=== PATIENT | male | born 1950 | race Caucasian/White ===

== ENCOUNTER 2019-09-20 21:51 | Emergency (ER) | payer MEDICARE, OTHER ==
[2019-09-20 22:14] VITALS: O2SAT 94
[2019-09-20] MEDS ORDERED: Adacel Vial IM ONE ×2 (23:13→23:26)
--- NOTE | 2019-09-20 23:13 | ERPHSYRPT ---
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 denies loss of consciousness Triage Nursing Assessment: pt alert and oriented, answers questions approp. pt ambulatory with steady gait noted. respirations nonlabored. denies loc, denies dizziness at this time. Physician History: Patient was hit with a piece of plastic to his right eyebrow at work at approximately 16:00 on 09/20/2019. He denies any loss of vision or any eye pain. He can not recall his last tetanus shot. 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 Allergies/Adverse Reactions: Penicillins Allergy (Verified 09/20/19 22:16) Home Medications: Aspirin EC 81 mg [Ecotrin 81 mg] 81 mg PO DAILY 09/20/19 [History] Hx Tetanus, Diphtheria Vaccination/Date Given: No (unknown) Hx Influenza Vaccination/Date Given: No Hx Pneumococcal Vaccination/Date Given: No Immunizations Up to Date: No - Review of Systems Constitutional: No Fatigue, No Lethargy, No Malaise Eyes: No Discharge, No Eye Pain, No Eye Redness, No Photophobia, No Tearing, No Vision Changes, No Double Vision, No Foreign Body Sensation Ears, Nose, & Throat: No Ear Pain, No Nose Congestion, No Epistaxis, No Mouth Pain, No Loose Teeth, No Painful Swallowing Respiratory: No Dyspnea, No Dyspnea on Exertion (LYONS) Cardiac: No Chest Pain, No Palpitations, No Syncope Abdominal/Gastrointestinal: No Abdominal Pain, No Nausea, No Vomiting Genitourinary Symptoms: No Flank Pain Musculoskeletal: No Back Pain, No Neck Pain Skin: No Pruritis, No Rash Neurological: No Dizziness, No Headache, No Irritability, No Lethargy, No Parasthesia, No Seizure, No Tremors, No Vertigo Psychological: No Anxiety Endocrine: No Excessive Sweating Hematologic/Lymphatic: No Easy Bleeding, No Easy Bruising All Other Systems: Reviewed and Negative - Past Medical History Pertinent Past Medical History: Yes Cardiac History: Hypertension Respiratory History: No Pertinent History History: Other Other Medical History: kidney stone, colon infection- in surgery for 3 weeks, dvt, dural fistula 2014 - Past Surgical History Past Surgical History: Yes Gastrointestinal: Cholecystectomy Other Surgical History: cysto, - Social History Smoking Status: Never smoker Exposure to second hand smoke: No Drug Use: none Patient Lives Alone: No - Nursing Vital Signs Nursing Vital Signs: Initial Vital Signs Temperature 98.2 F 09/20/19 21:57 Pulse Rate 69 09/20/19 21:57 Respiratory Rate 18 09/20/19 21:57 Blood Pressure 144/73 09/20/19 21:57 O2 Sat by Pulse Oximetry 94 L 09/20/19 21:57 Pain Scale Pain Intensity 1 - Physical Exam General Appearance: no apparent distress, alert Vision Acuity Degree Evaluation Phase: Corrected Vision Acuity Right Eye: 20/50 Vision Acuity Left Eye: 20/50 Eye Exam: left eye: ecchymosis (left medial periocular area), bilateral eye: normal inspection (visual love intact to all four quadrants bilaterally), PERRL, EOMI Ears, Nose, Throat Exam: normal ENT inspection, TMs normal, pharynx normal, moist mucous membranes, No dry mucous membranes, No TM abnormal (R), No TM abnormal (L), No pharyngeal erythema Neck Exam: normal inspection, non-tender, supple, full range of motion, No meningismus, No Brudzinski, No limited range of motion, No midline tenderness Respiratory Exam: normal breath sounds, lungs clear, airway intact, No chest tenderness, No respiratory distress, No diminished breath sounds, No accessory muscle use, No crackles/rales, No rhonchi, No wheezing, No stridor Cardiovascular Exam: regular rate/rhythm, normal heart sounds, normal peripheral pulses, capillary refill <2 sec Gastrointestinal Exam: soft, normal bowel sounds, No tenderness, No distention, No guarding Extremity Exam: normal inspection, normal range of motion, pelvis stable, No contusions, No deformities, No lacerations Neurologic: alert, oriented x 3, cooperative, runner man II-XII nml as tested, normal mood/affect, nml cerebellar function, nml station & gait, sensation nml, No motor deficits Skin Exam: normal color, warm, dry, laceration (1.5 cm linear, clean subcutaneous laceration with no contamination medial to the right eyebrown with no involvement of the eyebrow), No rash, No abrasion SpO2 Interpretation: normal SpO2: 94 O2 Delivery: Room Air - Course Nursing assessment & vital signs reviewed: Yes Ordered Tests: Active Orders 24 hr Category Date Time Status Visual Acuity STAT Care 09/20/19 23:13 Active Medication Summary Discontinued Medications Generic Name Dose Route Start Last Admin Trade Name Freq PRN Reason Stop Dose Admin Diphtheria/Tetanus/Acell Pertussis 0.5 ml 09/20/19 23:13 09/20/19 23:40 Adacel Vial IM 09/20/19 23:14 0.5 ml .ONCE ONE Administration Diphtheria/Tetanus/Acell Pertussis Confirm 09/20/19 23:26 Adacel Vial Administered 09/20/19 23:27 Dose 0.5 ml IM .STK-MED ONE Lidocaine HCl Confirm 09/20/19 23:14 Xylocaine 1% Hcl 20 Ml Mdv Administered 09/20/19 23:15 Dose 1 ml .ROUTE .STK-MED ONE - Progress Progress: improved Progress Note: 09/20/19 23:19 Laceration Repair Procedure: location:4 head, medial to the left eyebrow Length: 1.5 cm wound description: Linear, slightly jagged, subcutaneous, with no contamination Cleaning: irrigated and cleansed with Hibiclens and saline Laceration repair: 4 interrupted 5-0 Prolene sutures Patient tolerated the procedure well, no complications No dressing placed 09/20/19 23:46 Laceration well approximated with no bleeding Counseled pt/family regarding: diagnosis, need for follow-up, rad results - Departure Departure Disposition: Home Clinical Impression: Laceration of forehead without complication Qualifiers: Encounter type: initial encounter Qualified Code(s): S01.81XA - Laceration without foreign body of other part of head, initial encounter Contusion of periocular region, left Qualifiers: Encounter type: initial encounter Qualified Code(s): S00.12XA - Contusion of left eyelid and periocular area, initial encounter Hypertension Qualifiers: Hypertension type: essential hypertension Qualified Code(s): I10 - Essential ( primary) hypertension Condition: Good Critical Care Time: No Referrals: RAINA SORIA MD [Primary Care Provider] - 09/25/19 (4 sutures were placed) Instructions: High Blood Pressure (DC), Laceration Repair With Stitches (DC), Tdap Vaccine Additional Instructions: You had 4 sutures placed, which should be removed in 5 days. You had your tetanus boosted with Adacel today. You had no involvement of your eye today. Return to the [facility] headache, dizziness, vision changes, new eye pain, or any other concerning signs or symptoms that were not present at today's emergency department for immediate reevaluation in the emergency department.
[2019-09-20] MEDS ORDERED: XYLOCAINE 1% HCL 20 ML MDV ONE (23:14)
[2019-09-20 23:50] VITALS: BP 151/88; PULSE 66
== END 2019-09-20 23:50 | disposition home or self-care (01) ==
LOC: ED 21:51
DX: S01.81XA Laceration without foreign body of other part of head, initial encounter (principal); S00.12XA Contusion of left eyelid and periocular area, initial encounter; I10 Essential (primary) hypertension; W22.8XXA Striking against or struck by other objects, initial encounter; Y93.89 Activity, other specified; Y92.89 Other specified places as the place of occurrence of the external cause
CPT/HCPCS: 12011; 90471; 90715; 99283

== ENCOUNTER 2020-03-19 17:11 | Emergency (ER) | payer MEDICARE, OTHER ==
[2020-03-19 17:31] VITALS: BP 141/67; PULSE 60; O2SAT 95
--- NOTE | 2020-03-19 17:54 | ERPHSYRPT ---
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 There is bleeding, applied pressure and is better. Laceration is at the pulp of finger and does not involve the nailbed. Intact movements at interphalangeal joint. He is complaining of sharp pain mild to moderate intensity with movements and palpation and better with being still an elevation. Up-to-date with immunizations. Allergies/Adverse Reactions: Penicillins Allergy (Verified 03/19/20 17:32) Home Medications: Aspirin EC 81 mg [Ecotrin 81 mg] 81 mg PO DAILY 09/20/19 [History] Atorvastatin Calcium [Lipitor] 80 mg PO DAILY 03/19/20 [History] Metoprolol Tartrate 25 mg [Lopressor 25MG Tab] 25 mg PO BID 03/19/20 [ History] Prasugrel HCL 10 MG [Effient 10 MG TABLET] 10 mg PO DAILY 03/19/20 [ History] lisinopriL [Lisinopril] 10 mg PO BID 03/19/20 [History] Hx Tetanus, Diphtheria Vaccination/Date Given: No (unknown) Hx Influenza Vaccination/Date Given: No Hx Pneumococcal Vaccination/Date Given: No Travel Risk - International Travel Have you traveled outside of the country in past 3 weeks: No Have you or anyone close to you been diagnosed with or: No Do your reside in a community with a known COVID-19 case?: Yes If Yes where:: [facility] - Coronavirus Screening Has patient experienced Coronavirus symptoms: No - Review of Systems Constitutional: No Symptoms Eyes: No Symptoms Ears, Nose, & Throat: No Symptoms Respiratory: No Symptoms Cardiac: No Symptoms Abdominal/Gastrointestinal: No Symptoms Musculoskeletal: Injury Skin: Skin Lesions Neurological: No Symptoms Psychological: No Symptoms Hematologic/Lymphatic: No Symptoms Immunological/Allergic: No Symptoms - Past Medical History Pertinent Past Medical History: Yes Cardiac History: Hypertension Respiratory History: No Pertinent History History: Other Other Medical History: kidney stone, colon infection- in surgery for 3 weeks, dvt, dural fistula 2014 - Past Surgical History Past Surgical History: Yes Gastrointestinal: Cholecystectomy Other Surgical History: cysto, - Social History Smoking Status: Never smoker Exposure to second hand smoke: No Drug Use: none Patient Lives Alone: No - Nursing Vital Signs Nursing Vital Signs: Initial Vital Signs Temperature 98.8 F 03/19/20 17:22 Pulse Rate 60 03/19/20 17:22 Blood Pressure 141/67 03/19/20 17:22 O2 Sat by Pulse Oximetry 95 03/19/20 17:22 Pain Scale Pain Intensity 3 - Physical Exam General Appearance: no apparent distress Eyes, Ears, Nose, Throat Exam: normal ENT inspection Neck Exam: normal inspection Cardiovascular/Respiratory Exam: normal breath sounds, regular rate/rhythm Shoulder Exam: normal inspection Elbow/Forearm Exam: normal inspection Wrist Exam: normal inspection Hand Exam: laceration (Left index finger curved laceration treatment centimeter. Blood oozing but not spurting. Intact movements at distal interphalangeal joint. Capillary refill less than 3 seconds. No involvement of nail.) Neuro/Tendon Exam: normal sensation, normal motor functions, normal tendon functions Mental Status Exam: alert, oriented x 3 Skin Exam: normal color SpO2 Interpretation: normal SpO2: 95 O2 Delivery: Room Air Procedures - Laceration/Wound Repair Left Upper Finger Wound Length (cm): 3 Wound's Depth, Shape: superficial Wound Explored: clean Irrigated: Yes Hibiclens Prep: Yes Anesthesia: digital block, 1% Lidocaine Wound Repaired With: sutures Suture Size/Type: 4-0, ethilon Number of Sutures: 5 Layer Closure?: No Sterile Dressing Applied?: Yes Progress: 03/19/20 17:52 She tolerated procedure very well - Course Nursing assessment & vital signs reviewed: Yes Ordered Tests: Medication Summary Discontinued Medications Generic Name Dose Route Start Last Admin Trade Name Freq PRN Reason Stop Dose Admin Acetaminophen 1,000 mg 03/19/20 17:57 03/19/20 17:58 Tylenol Extra Strength 500 Mg PO 03/19/20 17:58 1,000 mg STAT STA Administration Acetaminophen Confirm 03/19/20 17:56 Tylenol Extra Strength 500 Mg Administered 03/19/20 17:57 Dose 1,000 mg .ROUTE .STK-MED ONE - Progress Progress: improved, pain not gone completely, re-examined Progress Note: 03/19/20 17:52 69 years old is evaluated for left index finger laceration. Is laceration is repaired. Tylenol for pain in here.. Recommended taking pain medications as needed. Up-to-date with immunizations. Outpatient follow-up with suture removal in 7 to 10 days. 03/19/20 18:15 Counseled pt/family regarding: diagnosis, need for follow-up - Departure Departure Disposition: Home Clinical Impression: Laceration of left index finger Qualifiers: Encounter type: initial encounter Damage to nail status: without damage Foreign body presence: without foreign body Qualified Code(s): S61.211A - Laceration without foreign body of left index finger without damage to nail, initial encounter Condition: Stable Critical Care Time: No Referrals: RAINA SORIA MD [Primary Care Provider] - Follow Up with PCP/3 days Instructions: Common Finger Injuries (DC) Additional Instructions: Use Tylenol as needed for pain. Keep it elevated. Follow-up with primary care for reevaluation and suture removal. Return to ER for increased swelling pain redness or develop discharge/fever or chills. Prescriptions: Hydrocodone/APAP 5-325 Tab^^^ [[place] 5-325 Tablet^^^] 1 tab PO Q6HPRN PRN #7 tablet MDD 6 PRN Reason: Pain
[2020-03-19] MEDS ORDERED: TYLENOL EXTRA STRENGTH 500 MG ONE (17:56)
[2020-03-19] MEDS: TYLENOL EXTRA STRENGTH 500 MG PO STA (17:58)
== END 2020-03-19 18:35 | disposition home or self-care (01) ==
LOC: ED 17:11
DX: S61.211A Laceration without foreign body of left index finger without damage to nail, initial encounter (principal); W45.8XXA Other foreign body or object entering through skin, initial encounter; W22.8XXA Striking against or struck by other objects, initial encounter; Y93.89 Activity, other specified; Y92.89 Other specified places as the place of occurrence of the external cause; Z79.899 Other long term (current) drug therapy
CPT/HCPCS: 12002; 99283; A9270-GY